=== PATIENT | male | born 1950 | race Caucasian/White ===

== ENCOUNTER → 2020-05-28 | Outpatient (CLI) | payer MEDICARE ==
[~2020-05-28] MED LIST: ASPI-630 PO; CLOP75TA57 PO; CRESTOR5 MG PO; DEXT30CA6 PO; FENO160T PO; FINA5TAB4 PO; FLUO20CA20 PO; LOSA-73 PO; METF10007 PO; METO-313 PO; MIRA50TA PO; TAMS0.4C97 PO
== END | disposition home or self-care (01) ==
LOC: LAB 13:34
PROVIDERS: ATTEND Internal Medicine Gastroenterology
DX: Z20.828 Contact with and (suspected) exposure to other viral communicable diseases (principal)
CPT/HCPCS: U0003-CS

== ENCOUNTER → 2020-05-31 | Day surgery (SDC) | payer MEDICARE, BC ==
[~2020-05-31] MED LIST changes: +IV RINGERS,LACTATED 1000ML 1,000 ML IV SCH; +LIDOCAINE 1% PF 2 ML VIAL. ID PRN; +LIDOCAINE 2% PF 5 ML VIAL. ONE; +MIDAZOLAM HCL/PF 2 MG/2 ML VIAL. IV PRN; +PROPOFOL 10 MG/ML (20ML) VIAL. IV ONE; +fentaNYL PF VIAL 100 MCG/2 ML VIAL IV PRN
[2020-05-31 08:20] VITALS: BP 135/74
== END | disposition home or self-care (01) ==
LOC: ENDOS 06:46
PROVIDERS: ATTEND Internal Medicine Gastroenterology
DX: R13.10 Dysphagia, unspecified (principal); K22.2 Esophageal obstruction; F41.9 Anxiety disorder, unspecified; F32.9 Major depressive disorder, single episode, unspecified; E78.00 Pure hypercholesterolemia, unspecified; I10 Essential (primary) hypertension; G47.30 Sleep apnea, unspecified; Z95.0 Presence of cardiac pacemaker; Z79.82 Long term (current) use of aspirin; Z79.899 Other long term (current) drug therapy; Z83.3 Family history of diabetes mellitus; Z82.49 Family history of ischemic heart disease and other diseases of the circulatory system; Z72.89 Other problems related to lifestyle
CPT/HCPCS: 43450; 82962; J2704

== ENCOUNTER 2021-07-22 00:03 | Inpatient (IN) | payer MEDICARE ==
[~2021-07-22] VITALS: Ht 172.7 cm; Wt 91.9 kg
[~2021-07-22 00:03] MED LIST changes: -FLUO20CA20 PO; +FLUO20CA22 PO; -IV RINGERS,LACTATED 1000ML 1,000 ML IV SCH; -LIDOCAINE 1% PF 2 ML VIAL. ID PRN; -LIDOCAINE 2% PF 5 ML VIAL. ONE; -MIDAZOLAM HCL/PF 2 MG/2 ML VIAL. IV PRN; +MIRA25TA PO; -MIRA50TA PO; -PROPOFOL 10 MG/ML (20ML) VIAL. IV ONE; -fentaNYL PF VIAL 100 MCG/2 ML VIAL IV PRN
[2021-07-22 00:28] LABS: BASO % 1 % (0-3); EOS # 0.1 x10^3/uL (0.0-0.7); EOS % 1 % (0-3); HEMATOCRIT 38.9 % (39.0-53.0); HEMOGLOBIN 13.5 g/dL (13.0-17.5); LYMPH # 1.5 x10^3/uL (1.0-4.8); LYMPH % 17 % (24-48); MEAN CORPUSCULAR HEMOGLOBIN 30 pg (25-35); MEAN CORPUSCULAR HGB CONC 35 g/dL (31-37); MEAN CORPUSCULAR VOLUME 86 fL (79-100); MONO # 0.5 x10^3/uL (0.0-1.1); MONO % 6 % (0-9); NEUT # 6.4 x10^3/uL (1.8-7.7); NEUT % 75 % (31-73); PLATELET COUNT 238 x10^3/uL (140-400); RED BLOOD COUNT 4.51 x10^6/uL (4.30-5.70); RED CELL DISTRIBUTION WIDTH 13.8 % (11.5-14.5); WHITE BLOOD COUNT 8.5 x10^3/uL (4.0-11.0)
--- NOTE | 2021-07-22 00:31 | PHYS DOC ---
General Adult EDM: Chief Complaint: CHEST PAIN-CARDIAC NATURE HPI: HPI: 71-year-old male past medical history of CAD on Plavix, insulin-dependent diabetes, hypertension, hyperlipidemia and obesity, presents the ED from [facility] with complaints of left-sided chest pain described as " someone stabbing with a knife," started around 1030/11 PM while patient was swimming at a local gym. No relief with 2 0.4 mg tablets of nitroglycerin. Reports associated nausea, vomiting, shortness of breath and diaphoresis stating "it feels like I'm having a heart attack." Per EMS patient's initial blood pressure was 87/50. Glucose was in the 180s. Patient was given 4 baby aspirin, 100 mcg of fentanyl and 4 mg of Zofran. Repeat BP was 170s/80s. Fluid bolus started. Pt poor historian-believes last AMI was 1 year ago at [facility]. Received the moderna vaccine. Review of Systems: Review of Systems: Constitutional: Denies fever or chills. [] Eyes: Denies change in visual acuity. [] HENT: Denies nasal congestion or sore throat. [] Respiratory: Denies cough or increased work of breathing Cardiovascular: Denies syncope or palpitations GI: Denies abdominal pain, bloody stools or diarrhea. [] : Denies dysuria or hematuria Musculoskeletal: Denies back pain or joint pain. [] Integument: Denies rash or blistering lesions Neurologic: Denies headache, focal weakness or sensory changes. [] Endocrine: Denies polyuria or polydipsia. [] Lymphatic: Denies swollen glands. [] Psychiatric: Denies depression or anxiety. [] Heart Score: C/O Chest Pain: Yes HEART Score for Chest Pain: HEART Score for Chest Pain Response (Comments) Value History Moderately Suspicious 1 ECG Nonspecific Repolarizatio 1 Age > 65 2 Risk Factors >3 Risk Factors or Hx CAD 2 Troponin < Normal Limit 0 Total 6 Risk Factors: Risk Factors: DM, Current or recent (<one month) smoker, HTN, HLP, family history of CAD, obesity. Risk Scores: Score 0 - 3: 2.5% MACE over next 6 weeks - Discharge Home Score 4 - 6: 20.3% MACE over next 6 weeks - Admit for Clinical Observation Score 7 - 10: 72.7% MACE over next 6 weeks - Early Invasive Strategies Allergies: Allergies: Allergies Coded Allergies Type Severity Reaction Last Updated Verified No Known Drug Allergies 05/31/20 No Physical Exam: PE: Constitutional: Grimacing, but not toxic appearing HENT: Normocephalic, atraumatic, no JVD Eyes: EOMI, conjunctiva normal, no discharge. Neck: Normal range of motion, supple, Cardiovascular: S1/2 present, regular rhythm Lungs & Thorax: Speaking in full sentences, bilateral equal chest rise, no tachypnea or increased work of breathing, no murmurs Abdomen: soft, no tenderness, Skin: Warm, dry, no erythema, no rash. [] Extremities: No tenderness, no cyanosis, Neurologic: Alert and oriented X 3, normal motor function, normal sensory function, no focal deficits noted. [] Psychologic: Affect normal, judgement normal, mood normal. [] EKG: EKG: two ems rhythm strips reviewed 2313 & 231 that show right bundle branch block with T wave inversion and ST depression in V1, V2 & V3, TWI V4, no ST elevations 0006 sinus rhythm with PACs, QRS 134, QTc 479, no axis deviation, left bundle branch present with deep inverted T waves and ST segment depressions in V1, V2 and V3, TWI V4, no ST elevations 0009 posterior EKG performed, sinus rhythm 71 bpm, no axis deviation, QRS 134, QTc 470, right bundle branch block present with deep inverted T waves in V1, V2 and V3, no ST elevations in V7, V8 in V9, no ST elevations 0012 right sided ekg performed, sinus rhythm 69 bpm, no axis deviation, QRS 144, QTc 480, right bundle branch present with deep inverted T waves in V1, V2, V3, T wave inversion V4, V5 and V6, no JOYCE in V4 0025 d/w cardiology, Dr. Martini- does not meet stemi criteria, consider cta to rule out pe for possible new rbbb Radiology/Procedures: Radiology/Procedures: []IMAGING REPORT Signed PATIENT: TRACIE CHOW ACCOUNT: [id number] : 1950 LOCATION: [address] [place] [address] AGE: 71 SEX: M EXAM STATUS: ADM IN ORD. PHYSICIAN: HARMONY FIELDS DO REASON: cp PROCEDURE: PORTABLE CHEST 1V EXAM: CHEST 1 VIEW History: Chest pain COMPARISON: None available. TECHNIQUE: Single portable radiograph of the chest FINDINGS: Mild cardiomegaly. Changes of CABG. The costophrenic sulci are clear and well demarcated. IMPRESSION: Mild cardiomegaly. Electronically signed by: Vincent Carvajal MD (07/22/2021 4:25 AM) [id number] DICTATED and SIGNED BY: VINCENT CARVAJAL MD DATE: 07/22/21 [id number] 0 IMAGING REPORT Signed PATIENT: TRACIE CHOW ACCOUNT: [id number] : 1950 LOCATION: [address] [place] [address] AGE: 71 SEX: M EXAM STATUS: ADM IN ORD. PHYSICIAN: HARMONY FIELDS DO REASON: cp, soa, r/o pe;OMNI 350, 75ML PROCEDURE: CT ANGIOGRAPHY CHEST Examination: CT angiography chest with IV contrast HISTORY: History of chest pain, shortness of breath COMPARISON: None available TECHNIQUE: Axial CT angiographic images of chest were performed with IV contrast. Coronal and sagittal 3-D MIP reformats are performed Exposure: One or more of the following individualized dose reduction techniques were utilized for this examination: 1. Automated exposure control 2. Adjustment of the mA and/or kV according to patient size 3. Use of iterative reconstruction technique FINDINGS: The central airways are patent. Mild cardiomegaly. Coronary artery calcifications identified. There is no evidence of filling defect identified in the main pulmonary arterial trunk and right and left lobe pulmonary arteries and the visualized lobar, segmental branches of pulmonary arteries. Mild bibasilar lung atelectasis. 5.5 mm nodule right upper lobe of the lung. The liver, spleen, adrenals grossly appears unremarkable. Moderate degenerative changes thoracic spine. IMPRESSION: 1. No evidence of pulmonary embolism. 2. Coronary artery calcifications. 3. 5.5 mm nodule right upper lobe of the lung. Per Fleischner Society guidelines for incidentally found solid nodules measuring less than 6 mm, no follow-up is necessary if patient is considered at low risk for lung cancer. If patient is considered to be at high risk, such as with history of smoking, then CT follow-up in about 12 months can be considered. Electronically signed by: Vincent Carvajal MD (07/22/2021 1:41 AM) [id number] DICTATED and SIGNED BY: VINCENT CARVAJAL MD DATE: 07/22/21 [id number] 0 Course & Med Decision Making: Course & Med Decision Making Pertinent Labs and Imaging studies reviewed. (See chart for details) Concern for moderate risk chest pain and arrest patient with no ST elevations on EKG, reviewed with cardiology. D-dimer is elevated. CTA of the chest shows no evidence of pulmonary embolus. Chest x-ray concerning for mild cardiomegaly. First troponin negative. Will admit for further medical management with cardiology full consultation pending. Patient stable at time of admission and agrees with this plan. I have spoken with the patient and/or caregivers. I have explained the patient's condition, diagnosis and treatment plan based on the information available to me at this time. I have answered the patient's and/or caregivers questions and answered any concerns. The patient and/or caregivers have as good an understanding of the patient's diagnosis, condition and treatment plan as can be expected at this point. The patient has been stabilized within the capability of the emergency department. The patient will be transported for further care and management or will be moved to an observation or inpatient service. I have communicated with the staff or medical practitioner taking over this patient's care. Yulissa Disclaimer: Yulissa Disclaimer: This electronic medical record was generated, in whole or in part, using a voice recognition dictation system. Departure Departure Impression: Primary Impression: Chest pain Disposition: ADMITTED INPATIENT Admitting Physician: BIANCA (Dr. Puga) Condition: GUARDED Referrals: BREEZY TAYLOR MD (PCP) HARMONY FIELDS DO Jul 22, 2021 00:31
[2021-07-22 00:39] LABS: CALCIUM 9.5 mg/dL (8.5-10.1); CREATININE 1.3 mg/dL (0.7-1.3); GFR 54.3; POTASSIUM 3.8 mmol/L (3.5-5.1)
[2021-07-22 00:44] LABS: D-DIMER 0.71 ug/mlFEU (0.00-0.50)
[2021-07-22 00:45] LABS: ALBUMIN/GLOBULIN RATIO 1.3 (1.0-1.7); MAGNESIUM 1.4 mg/dL (1.8-2.4); TOTAL BILIRUBIN 0.8 mg/dL (0.2-1.0); TOTAL PROTEIN 7.1 g/dL (6.4-8.2)
[2021-07-22] MEDS ORDERED: CONTRAST GIVEN. MC PRN ×2 (01:00→11:15)
[2021-07-22] MEDS ORDERED: IOHEXOL 350 MG/ML 100 ML VIAL. IV ONE (01:30)
--- NOTE | 2021-07-22 01:43 | RAD ---
Examination: CT angiography chest with IV contrast HISTORY: History of chest pain, shortness of breath COMPARISON: None available TECHNIQUE: Axial CT angiographic images of chest were performed with IV contrast. Coronal and sagitta l 3-D MIP reformats are performed Exposure: One or more of the following individualized dose reduction techniques were utilized for thi s examination: 1. Automated exposure control 2. Adjustment of the mA and/or kV according to patient size 3. Use of iterative reconstruction technique FINDINGS: The central airways are patent. Mild cardiomegaly. Coronary artery calcifications identified. There i s no evidence of filling defect identified in the main pulmonary arterial trunk and right and left lo be pulmonary arteries and the visualized lobar, segmental branches of pulmonary arteries. Mild bibasi lar lung atelectasis. 5.5 mm nodule right upper lobe of the lung. The liver, spleen, adrenals grossly appears unremarkable. Moderate degenerative changes thoracic spine. IMPRESSION: 1. No evidence of pulmonary embolism. 2. Coronary artery calcifications. 3. 5.5 mm nodule right upper lobe of the lung. Per Fleischner Society guidelines for incidentally fo und solid nodules measuring less than 6 mm, no follow-up is necessary if patient is considered at low risk for lung cancer. If patient is considered to be at high risk, such as with history of smoking, then CT follow-up in about 12 months can be considered. Electronically signed by: Vincent Carvajal MD (07/22/2021 1:41 AM) [id number]
[2021-07-22 02:00] VITALS: BP 140/70
--- NOTE | 2021-07-22 02:00 | NUR ---
Admit from ER via [facility] to [address] [place] [address] room 656. A/O x 4 on arrival. Talkative. Pleasant. Stood and ambulated from [facility] to bed independently. Steady gait. Was swimming at the gym this evening prior to having chest pain. Orientated to unit and call light. Instructed to call for standby assist when out of bed. Reviewed POC to include Tele monitor, VS assessment and Lab Draws. Verbalized understanding. Resting in bed. Call light at hand.
[2021-07-22] MEDS ORDERED: NPH,100V5 SQ (02:52)
[2021-07-22] MEDS ORDERED: INSU100V6 SQ (02:54)
--- NOTE | 2021-07-22 04:28 | EKG ---
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
--- NOTE | 2021-07-22 04:28 | RAD ---
EXAM: CHEST 1 VIEW History: Chest pain COMPARISON: None available. TECHNIQUE: Single portable radiograph of the chest FINDINGS: Mild cardiomegaly. Changes of CABG. The costophrenic sulci are clear and well demarcated. IMPRESSION: Mild cardiomegaly. Electronically signed by: Vincent Carvajal MD (07/22/2021 4:25 AM) [id number]
--- NOTE | 2021-07-22 04:29 | EKG ---
[facility] [address] [place] [address] Test Date: 2021-07-22 Test Time: 00:06:53 Pat Name: TRACIE CHOW Department: Room: [facility] Gender: M General Doc: : 1950 Requested By: HARMONY FIELDS Order Number: [id number] Reading MD: Giovanny Martini Measurements Intervals [place] Rate: 70 P: 90 RI: 140 QRS: 20 QRSD: 134 T: -7 QT: 434 QTc: 472 Interpretive Statements SINUS RHYTHM ATRIAL PREMATURE COMPLEX(ES) LEFT ATRIAL ABNORMALITY RIGHT BUNDLE BRANCH BLOCK RVH WITH REPOLARIZATION ABNORMALITY ABNORMAL ECG RI6.02 No previous ECG available for comparison Electronically Signed On 07-23-2021 16:03:50 CDT by Giovanny Martini
[2021-07-22] MEDS ORDERED: IOHEXOL 350 MG/ML 100 ML VIAL. ONE (05:57)
[2021-07-22] MEDS ORDERED: ANTI-COAG MONITOR BY PHARMACY. MC PRN (06:15)
[2021-07-22] MEDS ORDERED: HEPARIN 25,000UTS/250ML PREMIX 250 ML IV PRN (06:15)
[2021-07-22] MEDS ORDERED: HEPARIN for IV BOLUS 10,000 UNIT/10 ML VIAL. IV PRN (06:15)
[2021-07-22 07:00] VITALS: BP 113/53
--- NOTE | 2021-07-22 08:49 | PDOC2 ---
JOVANY STEPHEN CURB SETTER 07/22/21 0848: CARDIAC CONSULT DATE OF CONSULT Date of Consult DATE: 07/22/21 TIME: 08:39 REASON FOR CONSULT Reason for Consult: chest pain REFERRING PHYSICIAN Referring Physician: [facility] SOURCE Source: Chart review, Patient HISTORY OF PRESENT ILLNESS HISTORY OF PRESENT ILLNESS This is a pleasant 71 yo male admitted for complains of chest pain. Reports of chest pain intense sharp to left chest last night with associated nausea, SOA and diaphoresis, He has hx of CAD with multiple stents in the past. 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 Denies any fever or chills and has been vaccinated for covid-19. 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 Psych: Anxiety Musculoskeletal: Osteoarthritis Renal/: Benign prostatic enlarg., Other (ED) Endocrine: Diabetes (2) PAST SURGICAL HISTORY Past Surgical History: CABG, Other (PCI) FAMILY HISTORY Family History: Hypertension SOCIAL HISTORY Smoke: Quit ALCOHOL: none Drugs: None Lives: with Family CURRENT MEDICATIONS CURRENT MEDICATIONS Current Medications Medications (Trade) Dose Ordered Sig/Becca Route PRN Reason Start Time Stop Time Status Last Admin Dose Admin Iohexol (Omnipaque 350 Mg/ml) 75 ml 1X ONCE IV 07/22/21 01:30 07/22/21 01:31 DC 07/22/21 01:14 Heparin Sodium/ Dextrose 250 ml @ 10 mls/hr CONT PRN IV PER PROTOCOL 07/22/21 06:15 07/22/21 06:34 Heparin Sodium (Porcine) (Heparin Sodium) 2,300 unit PRN Q6HRS PRN IV FOR UFH LEVEL LESS THAN 0.2 07/22/21 06:15 07/22/21 06:35 Info (Anti-Coagulation Monitoring By Pharmacy) 1 each PRN DAILY PRN MC PER PROTOCOL 07/22/21 06:15 07/22/21 06:16 ALLERGIES ALLERGIES: Coded Allergies: No Known Drug Allergies (Unverified , 05/31/20) ROS Review of System 14 point ROS evaluated with pertinent positives noted per HPI PHYSICAL EXAM General: Alert, Oriented X3, Cooperative, No acute distress HEENT: Atraumatic, Mucous membr. moist/pink Lungs: Clear to auscultation, Normal air movement Heart: Regular rate (SR), Normal S1, Normal S2, No murmurs Abdomen: Soft, No tenderness Extremities: No cyanosis, No edema Skin: No breakdown, No significant lesion Neuro: Normal speech, Sensation intact Psych/Mental Status: Mental status NL, Mood NL MUSCULOSKELETAL: Osteoarthritic changes both hands VITALS/I&O VITALS/I&O: Vital Signs Date Time Temp Pulse Resp B/P (MAP) Pulse Ox O2 Delivery O2 Flow Rate FiO2 07/22/21 07:00 96.8 71 16 113/53 (73) 94 Room Air 96.8 I & O 07/21/21 07/21/21 07/22/21 15:00 23:00 07:00 Intake Total 0 ml Balance 0 ml LABS Lab: Laboratory Tests Test 07/22/21 00:16 07/22/21 01:24 07/22/21 03:30 07/22/21 06:20 White Blood Count 8.5 x10^3/uL (4.0-11.0) Red Blood Count 4.51 x10^6/uL (4.30-5.70) Hemoglobin 13.5 g/dL (13.0-17.5) Hematocrit 38.9 % (39.0-53.0) L Mean Corpuscular Volume 86 fL (79-100) Mean Corpuscular Hemoglobin 30 pg (25-35) Mean Corpuscular Hemoglobin Concent 35 g/dL (31-37) Red Cell Distribution Width 13.8 % (11.5-14.5) Platelet Count 238 x10^3/uL (140-400) Neutrophils (%) (Auto) 75 % (31-73) H Lymphocytes (%) (Auto) 17 % (24-48) L Monocytes (%) (Auto) 6 % (0-9) Eosinophils (%) (Auto) 1 % (0-3) Basophils (%) (Auto) 1 % (0-3) Neutrophils # (Auto) 6.4 x10^3/uL (1.8-7.7) Lymphocytes # (Auto) 1.5 x10^3/uL (1.0-4.8) Monocytes # (Auto) 0.5 x10^3/uL (0.0-1.1) Eosinophils # (Auto) 0.1 x10^3/uL (0.0-0.7) Basophils # (Auto) 0.0 x10^3/uL (0.0-0.2) Prothrombin Time 13.0 SEC (11.7-14.0) Prothrombin Time INR 1.0 (0.8-1.1) Activated Partial Thromboplast Time 25 SEC (24-38) D-Dimer ([place]) 0.71 ug/mlFEU (0.00-0.50) H Sodium Level 137 mmol/L (136-145) Potassium Level 3.8 mmol/L (3.5-5.1) Chloride Level 99 mmol/L (98-107) Carbon Dioxide Level 25 mmol/L (21-32) Anion Gap 13 (6-14) Blood Urea Nitrogen 20 mg/dL (8-26) Creatinine 1.3 mg/dL (0.7-1.3) Estimated GFR (Cockcroft-Gault) 54.3 BUN/Creatinine Ratio 15 (6-20) Glucose Level 191 mg/dL (70-99) H Calcium Level 9.5 mg/dL (8.5-10.1) Magnesium Level 1.4 mg/dL (1.8-2.4) L Total Bilirubin 0.8 mg/dL (0.2-1.0) Aspartate Amino Transferase (AST) 22 U/L (15-37) Alanine Aminotransferase (ALT) 38 U/L (16-63) Alkaline Phosphatase 82 U/L (46-116) Troponin I Quantitative 0.035 ng/mL (0.000-0.055) 1.667 ng/mL (0.000-0.055) 4.699 ng/mL (0.000-0.055) YO-Dgf-Y-Type Natriuretic Peptide 514 pg/mL (0-124) H Total Protein 7.1 g/dL (6.4-8.2) Albumin 4.0 g/dL (3.4-5.0) Albumin/Globulin Ratio 1.3 (1.0-1.7) SARS-CoV-2 Antigen (Rapid) Negative (NEGATIVE) Test 07/22/21 07:52 Glucose (Fingerstick) 236 mg/dL (70-99) H Laboratory Tests 07/22/21 00:16 Laboratory Tests 07/22/21 00:16 ASSESSMENT/PLAN ASSESSMENT/PLAN 1. NSTEMI/ACS 2. HTN 3. HLP 4. CAD: past stents unknown details. CABG 5. DM2 6. Hx of AAA: outpt monitoring Recommendations 1. LHC, risks and benefits discussed and agreeable to proceed 2. Secondary prevention measures 3. Continue heparin 4. FLP, TTE BRINDA MAYNARD MD 07/22/21 1011: CARDIAC CONSULT ASSESSMENT/PLAN ASSESSMENT/PLAN Patient seen and examined. Agree with INSTRUMENT/CONTROL TECHNICIAN's assessment and plan. 71-year-old male with known history of coronary artery disease s/p CABG and PCI/stents thereafter, usually followed by [facility] presented with chest pain and ruled in for acute non-STEMI. He is currently chest pain-free. Continue heparin infusion per protocol and proceed with cardiac catheterization and possible angioplasty. Risks and benefits were explained and he is agreeable. Thank you for your consultation JOVANY STEPHEN APRN Jul 22, 2021 08:48 BRINDA MAYNARD MD Jul 22, 2021 10:11
[2021-07-22] MEDS ORDERED: LIDOCAINE 1% Multi-Dose 20 ML VIAL. ONE (08:59)
[2021-07-22] MEDS ORDERED: IODIXANOL 320 MG/ML 100 ML VIAL. ONE ×2 (08:59→11:24)
[2021-07-22] MEDS ORDERED: FLU VACC QUAD 21-22 (6MOS+) PF 0.5 ML SYRINGE. VAX IM ONE (09:00)
[2021-07-22 09:09] LABS: CHOLESTEROL/HDL RATIO 2.9
[2021-07-22] MEDS ORDERED: fentaNYL PF VIAL 100 MCG/2 ML VIAL ONE (10:15)
[2021-07-22] MEDS ORDERED: MIDAZOLAM HCL/PF 2 MG/2 ML VIAL. ONE (10:15)
[2021-07-22] MEDS ORDERED: IODIXANOL 320 MG/ML 100 ML VIAL. IART ONE (11:00)
[2021-07-22] MEDS ORDERED: fentaNYL PF VIAL 100 MCG/2 ML VIAL IV ONE (11:00)
[2021-07-22] MEDS ORDERED: MIDAZOLAM HCL/PF 2 MG/2 ML VIAL. IV ONE (11:00)
[2021-07-22] MEDS ORDERED: LIDOCAINE 1% Multi-Dose 20 ML VIAL. INJ ONE (11:00)
[2021-07-22 11:44] VITALS: BP 148/75
[2021-07-22] MEDS ORDERED: 0.9 % SODIUM CHLORIDE 10 ML DISP.SYRIN. IV PRN (11:45)
--- NOTE | 2021-07-22 11:46 | PDOC ---
MODERATE SEDATION ASSESSMENT RISKS/ALTERNATIVES Risks/Alternatives Risks and alternatives of this type of sedation and procedure discussed with: RISK/ALTERNATIVES: Patient H & P ON CHART H & P H & P on chart and reviewed for co-morbid conditions and appropriate labs. H&P ON CHART: Yes STATUS PREG STATUS ASSESSED: N/A MEDS/ALLERGIES REVIEWED Meds/Allergies Reviewed Medications and Allergies including time and route of recently administered narcotics and sedatives. MEDS/ALLERGIES REVIEWED: Yes ASA RATING ASA RATING: III AIRWAY ASSESSMENT Airway Assessment Airway patency, oral function limitations, presence of caps, crowns, dentures, partials, and ability to extend neck assessed. AIRWAY ASSESSMENT: Yes MALLAMPATI SCORE MALLAMPATI SCORE: II PRE-SEDATION ASSESSMENT PRE-SEDATION ASSESSMENT: Yes BRINDA MAYNARD MD Jul 22, 2021 11:46
--- NOTE | 2021-07-22 12:08 | HP ---
DATE OF SERVICE: 07/22/2021 ADMIT DATE: 07/22/2021 CHIEF COMPLAINT: Chest pain. HISTORY OF PRESENT ILLNESS: The patient is a pleasant 71-year-old male who has had previous coronary artery disease. In fact, he has had stents and bypass surgery. Once again, he presents with chest pain, rates it 04/05, describes as a pressure sensation. I discussed the case with ER physician. We have admitted the patient. We are consulting Cardiology. He is going for cardiac catheterization today. PAST MEDICAL HISTORY: Coronary artery bypass surgery, CAD, coronary stents, hypertension, hyperlipidemia, PIOTR, neuropathy, osteoarthritis, anxiety, BPH and diabetes. ALLERGIES: None. FAMILY HISTORY: CAD. 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 He does not drink, smoke or take drugs. MEDICATIONS: Reviewed, please refer to the MRAD. REVIEW OF SYSTEMS: GENERAL: No history of weight change, weakness or fevers. SKIN: No bruising, hair changes or rashes. EYES: No blurred, double or loss of vision. NOSE AND THROAT: No history of nosebleeds, hoarseness or sore throat. HEART: No history of palpitations, chest pain or shortness of breath on exertion. LUNGS: Denies cough, hemoptysis, wheezing or shortness of breath. GASTROINTESTINAL: Denies changes in appetite, nausea, vomiting, diarrhea or constipation. GENITOURINARY: No history of frequency, urgency, hesitancy or nocturia. NEUROLOGIC: Denies history of numbness, tingling, tremor or weakness. PSYCHIATRIC: No history of panic, anxiety or depression. ENDOCRINE: No history of heat or cold intolerance, polyuria or polydipsia. EXTREMITIES: Denies muscle weakness, joint pain, pain on walking or stiffness. PHYSICAL EXAMINATION: VITALS: Within normal limits and are stable. GENERAL: No apparent distress. Alert and oriented. HEENT: Normal cephalic atraumatic, external auditory canals are patent EYES: Extraocular muscles are intact, pupils are equally round and reactive to light and accommodation MUSCULOSKELETAL: Well developed, well nourished, good range of motion ENDOCRINE: No thyromegaly was palpated LYMPHATICS: No cervical chain or axillary nodes were noted HEMATOPOIETIC: No bruising NECK: Supple, no JVD, no thyromegaly was noted. LUNGS: Clear to auscultation in all lung loza without rhonchi or wheezing. HEART: RRR, S1, S2 present. Peripheral pulses intact, no obvious murmurs were noted. ABDOMEN: Soft, nontender. Positive bowel sounds no organomegaly, normal bowel sounds. EXTREMITIES: Without any cyanosis, clubbing, or edema. Pedal pulses intact, Homans sign is negative. NEUROLOGIC: Normal speech, normal tone. A and O x3, moves all extremities, no obvious focal deficits. PSYCHIATRIC: Normal affect, normal mood. Stable. SKIN: No ulcerations or rashes, good skin turgor, no jaundice. VASCULAR: Good capillary refill, neurovascular bundle appears to be intact. LABORATORY DATA: Troponin is 1.6. This morning, it is up to 4.69. Creatinine normal at 1.3. Hematology is normal. INR is 1. COVID testing negative. ASSESSMENT AND PLAN: Acute myocardial infarction. The patient has been admitted. He is going for cardiac catheterization in just a few minutes. We will await our cath report and results. Home medications. Deep venous thrombosis prophylaxis. Full code. We have a heparin drip. Prognosis guarded, but improving. RUBI/JORDAN/JUDSON DR: RUBI/jennifer TID: [id number]
[2021-07-22] MEDS ORDERED: NITROGLYCERIN SUBLINGUAL 0.4 MG BOTTLE OF 25. SL ONE (12:48)
[2021-07-22] MEDS ORDERED: NITROGLYCERIN SUBLINGUAL 0.4 MG BOTTLE OF 25. SL PRN (13:00)
[2021-07-22] MEDS ORDERED: HYDROcodone/APAP 5/325MG 1 TAB TABLET PO PRN (13:00)
[2021-07-22] MEDS ORDERED: ISOS30TA68 PO (13:08)
[2021-07-22] MEDS ORDERED: CLOP75TA PO (14:04)
[2021-07-22] MEDS ORDERED: METOPROLOL SUCC 24HR ER 100 MG TAB.ER.24H. PO ONE (14:15)
--- NOTE | 2021-07-22 14:43 | NUR ---
SS following for discharge planning. SS reviewed pt chart and discussed with pt RN. Pt is from home with spouse and is currently requiring oxygen at two liters nasal canula. COVID19 negative. Pt had heart cath today. PT/OT ordered. SS will continue to follow for discharge planning.
--- NOTE | 2021-07-22 14:51 | CARD ---
MR#: [id number] Date of Study: 07/22/2021 Ordering Physician: BRINDA MARTINI, Referring Physician: BRINDA MARTINI, Tech: RT Rachel(R) APPROVED REPORT Technologist: RT Rachel(R) Nurse: Yuki Devlin RN Procedure(s) performed: Left heart catheterization, selective coronary angiography and selective keyla ography of the bypass grafts FLOURO TIME: 7.5 MINUTES DOSE: 111.25 Gycm2 CONTRAST: 184 CC'S VISIPAQUE MODERATE SEDATION: 66 MINUTES INDICATION The indication(s) include : non-STEMI . [facility] Clinical Frailty Scale [facility] Clinical Frailty Scale: Moderately Frail Heart Failure Heart Failure: No CASE TECHNIQUE IV conscious sedation was used throughout procedure with appropriate monitoring and was performed in the presence of a registered nurse who was an independent trained observer other than the physician p erforming the procedure. During this case, Fluoroscopy and low osmolar contrast were used for imaging . Specimen(s) Removed: No Estimated Blood loss: 15 cc's. PROCEDURE NARRATIVE After explaining the risk, benefits and alternative options, informed consent was obtained from patie nt. Patient was brought to the cardiac School Aide and his right groin was prepped and draped in the us ual fashion. 20 cc of 2% lidocaine was infiltrated into the skin and subcutaneous tissues for local anesthesia. Arterial access was obtained in the right common femoral artery and a 6 [place]otho sheath wa s inserted. 6 [place] JL4 and 6 [place] JR4 catheters were used to perform selective angiography of th e left and right coronary arteries. The 6 [place] JR4 catheter was used to perform selective angiogra phy of the saphenous vein graft to the right coronary artery, sequential saphenous vein graft to the first and second obtuse marginal branches and also the left internal mammary artery graft to the left anterior descending artery. 6 [place] pigtail catheter was positioned in the ascending aorta and meagan t aortogram was performed to rule out presence of any other grafts. LVEDP and transaortic gradients were measured. Patient tolerated the procedure well. Hemostasis in the right groin was achieved usi ng Angio-Seal. There were no immediate complications. FINDINGS 1. Hemodynamics: Elevated left ventricular end-diastolic pressure of 27 mmHg consistent with acute d iastolic heart failure. No pullback gradient across the aortic valve 2. Coronary and bypass graft angiography: a. The left main coronary artery arose from the left sinus of Valsalva, gave rise to the left anteri or descending and left circumflex arteries and did not show any significant stenosis. b. The left anterior descending artery showed a widely patent stent in the proximal to mid segment. There was 100% chronic total occlusion in the distal segment. c. The left circumflex artery showed a long 90% stenosis in the midsegment followed by 100% chronic total occlusion. d. The right coronary artery arose from the right sinus of Valsalva and showed 100% chronic total oc clusion in the mid segment. The right ventricular marginal branch reconstitutes via bridging collate rals. The posterior descending and posterolateral branches reconstitute via kaqb-ad-umopw collateral s. e. The saphenous vein graft to the right coronary artery showed chronic total occlusion in the proxi mal segment. f. The sequential saphenous vein graft to the first and second obtuse marginal branches showed paten t stents in the proximal and distal segments of the graft and also in the segment between the first a nd second obtuse marginal branches. The third obtuse marginal branch fills via retrograde flow. g. The left internal mammary artery graft to the left anterior descending artery was widely patent. Conclusion 1. Severe [place] vessel coronary artery disease s/p coronary artery bypass surgery as described abov e with patent RAMOS to LAD, patent stents in the sequential saphenous vein graft to the first and seco nd obtuse marginal branches. The saphenous vein graft to the right coronary artery showed chronic to cosmo occlusion. The previously placed stent in the proximal to mid segment of the left anterior desce nding artery is patent. No lesions needing intervention were noted. 2. Acute diastolic heart failure as evidenced by elevated LVEDP. Recommendations Medical Therapy Signed by : Brinda Martini, Electronically Approved : 07/22/2021 14:50:47
--- NOTE | 2021-07-22 14:58 | CARD ---
MR#: [id number] Date of Study: 07/22/2021 Ordering Physician: JOVANY STEPHEN, Referring Physician: JOVANY STEPHEN Tech: Cecilia Garcia [facility] APPROVED REPORT EXAM: Two-dimensional and M-mode echocardiogram with Doppler and color Doppler. Other Information Quality : AverageHR: 72bpm Rhythm : NSR INDICATION Cardiac Disease: RISK FACTORS Hypertension Obesity Hyperlipidemia Diabetes 2D DIMENSIONS RVDd3.3 (2.9-3.5cm)Left Atrium(2D)4.5 (1.6-4.0cm) IVSd1.0 (0.7-1.1cm)Aortic Root(2D)4.0 (2.0-3.7cm) LVDd5.7 (3.9-5.9cm)LVOT Diameter2.2 (1.8-2.4cm) PWd1.1 (0.7-1.1cm)LVDs3.1 (2.5-4.0cm) FS (%) 45.5 %SV122.9 ml LVEF(%)76.2 (>50%) Aortic Valve AoV Peak Carlton.116.2cm/sAoV VTI22.6cm AO Peak GR.5.4mmHgLVOT VTI 21.62cm AO Mean GR.3mmHg Mitral Valve MV E Lbdgpqlv15.6cm/sMV DECEL [id number] MV A Rhfloxvy518.9cm/sE/A Ratio0.9 TDI Lateral E' P. V7.99cm/sMedial E' P. V7.75cm/s E/Lateral E'12.0E/Medial E'12.3 Tricuspid Valve TR P. Znpifewf578cp/sTR Peak Gr.22mmHg LEFT VENTRICLE The Left Ventricle is borderline dilated. There is borderline to mild concentric left ventricular hyp ertrophy. The left ventricular systolic function is normal and the ejection fraction is within normal range. Estimated ejection fraction 50-55%. The basal to mid inferior wall is akinetic. Remainder of the LV is grossly normal. Transmitral Doppler flow pattern is Grade I-abnormal relaxation pattern. RIGHT VENTRICLE The right ventricle is normal size. There is normal right ventricular wall thickness. The right ventr icular systolic function is normal. ATRIA The left atrium size is normal. The right atrium size is normal. The interatrial septum is intact wit h no evidence for an atrial septal defect or patent foramen ovale as noted on 2-D or Doppler imaging. AORTIC VALVE The aortic valve is normal in structure and function. Doppler and Color Flow revealed trace aortic re gurgitation. There is no significant aortic valvular stenosis. MITRAL VALVE The mitral valve is normal in structure and function. There is no evidence of mitral valve prolapse. There is no mitral valve stenosis. Doppler and Color-flow revealed mild mitral regurgitation. TRICUSPID VALVE The tricuspid valve is normal in structure and function. Doppler and Color Flow revealed trace tricus pid regurgitation. Estimated PAP 32 mmHg. There is no tricuspid valve stenosis. PULMONIC VALVE Doppler and Color Flow revealed no pulmonic valvular regurgitation. There is no pulmonic valvular iona nosis. GREAT VESSELS The aortic root is normal in size. The ascending aorta is normal in size. The IVC is normal in size a nd collapses >50% with inspiration. PERICARDIAL EFFUSION There is no evidence of significant pericardial effusion. Critical Notification Critical Value: No <Conclusion> The left ventricular systolic function is normal and the ejection fraction is within normal range. E stimated ejection fraction 50-55%. The basal to mid inferior wall is akinetic. Remainder of the LV is grossly normal. Doppler and Color-flow revealed mild mitral regurgitation. Signed by : Beau Wyatt, Electronically Approved : 07/22/2021 14:58:06
[2021-07-22 15:17] VITALS: BP 149/82
[2021-07-22] MEDS: ISOSORBIDE DINITRATE 10 MG TABLET. PO SCH ×2 (17:14→20:42)
[2021-07-22] MEDS ORDERED: DEXTROSE 50% 25 GM / 50ML DISP.SYRIN. IV PRN (17:15)
[2021-07-22] MEDS ORDERED: INSULIN LISPRO 300 UNITS/3 ML VIAL. SQ ONE (17:30)
[2021-07-22] MEDS: INSULIN LISPRO 300 UNITS/3 ML VIAL. SQ SCH (17:36)
[2021-07-22 19:12] VITALS: BP 104/48
[2021-07-22] MEDS: INSULIN GLARGINE SYRINGE. SQ SCH (20:43)
[2021-07-22] MEDS ORDERED: ATORVASTATIN CALCIUM 40 MG TABLET. PO SCH (21:00)
[2021-07-22 22:11] VITALS: BP 107/54
[2021-07-23 02:58] VITALS: BP 113/63
[2021-07-23 05:18] LABS: HEMATOCRIT 35.6 % (39.0-53.0); HEMOGLOBIN 12.2 g/dL (13.0-17.5); RED BLOOD COUNT 4.08 x10^6/uL (4.30-5.70); RED CELL DISTRIBUTION WIDTH 13.7 % (11.5-14.5); WHITE BLOOD COUNT 5.6 x10^3/uL (4.0-11.0)
[2021-07-23 07:00] VITALS: BP 124/73
[2021-07-23] MEDS ORDERED: NON FORMULARY ITEM (Dextroamphetamine/Amphetamine (Adderall Xr 30 Mg Capsule) 1 CAP) PO SCH (08:00)
[2021-07-23] MEDS: ISOSORBIDE DINITRATE 10 MG TABLET. PO SCH (08:50)
[2021-07-23] MEDS ORDERED: METOPROLOL SUCC 24HR ER 50 MG TAB.ER.24H. PO SCH (09:00)
[2021-07-23] MEDS: INSULIN GLARGINE SYRINGE. SQ SCH (09:00)
[2021-07-23] MEDS ORDERED: ISOSORBIDE MONONITRATE ER 30 MG TAB.ER.24H PO SCH (09:00)
[2021-07-23] MEDS ORDERED: TAMSULOSIN 0.4 MG CAP.ER.24H. PO SCH (09:00)
[2021-07-23] MEDS ORDERED: FENOFIBRATE,MICRONIZED 134 MG CAPSULE PO SCH (09:00)
[2021-07-23] MEDS ORDERED: METOPROLOL SUCC 24HR ER 100 MG TAB.ER.24H. PO SCH (09:00)
[2021-07-23] MEDS ORDERED: ASPIRIN CHEWABLE 81 MG TABLET. PO SCH (09:00)
[2021-07-23] MEDS ORDERED: LOSARTAN POTASSIUM 50 MG TABLET. PO SCH (09:00)
[2021-07-23] MEDS ORDERED: FINASTERIDE 5 MG TABLET. PO SCH (09:00)
[2021-07-23] MEDS ORDERED: CLOPIDOGREL BISULFATE 75 MG TABLET PO SCH ×2 (09:00)
[2021-07-23] MEDS ORDERED: FLUoxetine HCL 20 MG CAPSULE PO SCH (09:00)
[2021-07-23 11:00] VITALS: BP 120/64
[2021-07-23] MEDS ORDERED: ISOS10TA2 PO (11:23)
[2021-07-23] MEDS ORDERED: NITR0.4T24 SL (11:23)
[2021-07-23] MEDS ORDERED: METO-247 PO (11:23)
--- NOTE | 2021-07-23 11:29 | PDOC ---
[employer] PROGRESS NOTE Date of Service DOS: DATE: 07/23/21 TIME: 11:28 Chief Complaint Chief Complaint Chest pain with status post cardiac cath yesterday (small vessel disease we are going with medical management) Coronary artery bypass surgery, CAD, coronary stents, hypertension, hyperlipidemia, PIOTR, neuropathy, osteoarthritis, anxiety, BPH and diabetes. History of Present Illness History of Present Illness 07/23/2012 Patient seen exam He is at his baseline Cardiac cath results showed small vessel disease We will discharge this afternoon with medical manage Discussed with case management Discussed with RN Vitals/I&O Vitals/I&O: Vital Signs Date Time Temp Pulse Resp B/P (MAP) Pulse Ox O2 Delivery O2 Flow Rate FiO2 07/23/21 08:51 67 124/73 07/23/21 08:00 Room Air 2.0 07/23/21 07:00 98.8 16 95 98.8 I & O 07/22/21 07/22/21 07/23/21 15:00 23:00 07:00 Intake Total 0 ml 240 ml 300 ml Balance 0 ml 240 ml 300 ml Physical Exam General: Alert, Oriented X3, Cooperative, No acute distress Heart: Regular rate (SR), Normal S1, Normal S2, No murmurs Abdomen: Soft, No tenderness Extremities: No cyanosis, No edema Skin: No breakdown, No significant lesion Labs Labs: Laboratory Tests Test 07/22/21 12:06 07/22/21 12:48 07/22/21 16:56 07/22/21 20:59 Glucose (Fingerstick) 191 mg/dL (70-99) 418 mg/dL (70-99) 306 mg/dL (70-99) Heparin Anti-Xa Act, Unfractionated < 0.10 IU/mL (0.30-0.70) Test 07/23/21 04:05 07/23/21 07:52 White Blood Count 5.6 x10^3/uL (4.0-11.0) Red Blood Count 4.08 x10^6/uL (4.30-5.70) Hemoglobin 12.2 g/dL (13.0-17.5) Hematocrit 35.6 % (39.0-53.0) Mean Corpuscular Volume 87 fL (79-100) Mean Corpuscular Hemoglobin 30 pg (25-35) Mean Corpuscular Hemoglobin Concent 34 g/dL (31-37) Red Cell Distribution Width 13.7 % (11.5-14.5) Platelet Count 193 x10^3/uL (140-400) Glucose (Fingerstick) 257 mg/dL (70-99) Assessment and Plan Assessmemt and Plan Problems Medical Problems: (1) Chest pain Status: Acute Discharge see dictation Comment Review of Relevant I have reviewed the following items hunter (where applicable) has been applied. Medications: Current Medications Medications (Trade) Dose Ordered Sig/Becca Route PRN Reason Start Time Stop Time Status Last Admin Dose Admin Aspirin (Aspirin Chewable) 81 mg DAILY PO 07/23/21 09:00 07/23/21 08:50 Finasteride (Proscar) 5 mg DAILY PO 07/23/21 09:00 07/23/21 08:50 Fluoxetine HCl (PROzac) 20 mg DAILY PO 07/23/21 09:00 07/23/21 08:50 Losartan Potassium (Cozaar) 50 mg DAILY PO 07/23/21 09:00 07/23/21 08:49 Tamsulosin HCl (Flomax) 0.4 mg DAILY PO 07/23/21 09:00 07/23/21 08:50 Fenofibrate (Lofibra) 134 mg DAILY PO 07/23/21 09:00 07/23/21 08:50 Insulin Glargine (Lantus Syringe) 40 unit BID SQ 07/22/21 21:00 07/22/21 20:43 Atorvastatin Calcium (Lipitor) 40 mg QHS PO 07/22/21 21:00 07/22/21 20:42 Isosorbide Mononitrate (Imdur) 30 mg DAILY PO 07/23/21 09:00 07/23/21 08:51 Clopidogrel Bisulfate (Plavix) 75 mg DAILY PO 07/23/21 09:00 07/23/21 08:50 Isosorbide Dinitrate (Isordil) 30 mg TID PO 07/22/21 14:15 07/22/21 20:42 Metoprolol Succinate (Toprol Xl) 100 mg DAILY PO 07/23/21 09:00 07/23/21 08:49 Metoprolol Succinate (Toprol Xl) 100 mg 1X ONCE PO 07/22/21 14:15 10/26/21 14:35 DC 07/22/21 17:14 Insulin Human Lispro (HumaLOG) 0-9 UNITS TIDWMEALS SQ 07/22/21 17:30 07/22/21 17:36 Insulin Human Lispro (HumaLOG) 10 units 1X ONCE SQ 07/22/21 17:30 07/22/21 17:31 DC 07/22/21 17:27 Justifications for Admission Other Justification RAMSEY OCHOA III DO Jul 23, 2021 11:29
--- NOTE | 2021-07-23 11:50 | PDOC ---
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 07/23/21 1150: CARDIO Progress Notes Date and Time Date of Service 07/23/21 Time of Evaluation 1150 Subjective Subjective: No Chest Pain, No shortness of breath, No Palpitations Vitals Vitals Vital Signs Date Time Temp Pulse Resp B/P (MAP) Pulse Ox O2 Delivery O2 Flow Rate FiO2 07/23/21 08:51 67 124/73 07/23/21 08:00 Room Air 2.0 07/23/21 07:00 98.8 16 95 98.8 Weight Weight [ ] Input and Output Intake and Output Intake and Output 07/23/21 07:00 Intake Total 540 ml Balance 540 ml Intake Oral 540 ml Laboratory Labs Laboratory Tests Test 07/22/21 12:06 07/22/21 12:48 07/22/21 16:56 07/22/21 20:59 Glucose (Fingerstick) 191 mg/dL (70-99) 418 mg/dL (70-99) 306 mg/dL (70-99) Heparin Anti-Xa Act, Unfractionated < 0.10 IU/mL (0.30-0.70) Test 07/23/21 04:05 07/23/21 07:52 White Blood Count 5.6 x10^3/uL (4.0-11.0) Red Blood Count 4.08 x10^6/uL (4.30-5.70) Hemoglobin 12.2 g/dL (13.0-17.5) Hematocrit 35.6 % (39.0-53.0) Mean Corpuscular Volume 87 fL (79-100) Mean Corpuscular Hemoglobin 30 pg (25-35) Mean Corpuscular Hemoglobin Concent 34 g/dL (31-37) Red Cell Distribution Width 13.7 % (11.5-14.5) Platelet Count 193 x10^3/uL (140-400) Glucose (Fingerstick) 257 mg/dL (70-99) Physical Exam HEENT: Neck Supple W Full Motion Chest: Symmetric LUNGS: Clear to Auscultation Heart: RRR Abdomen: Soft N/T Extremities: No Edema Neurology: alert, oriented, follow commands Assessment Assessment 1. NSTEMI 2. CAD; s/p previous CABG and subsequent PCI/stents. LHC as noted below * Conclusion 1. Severe [place] vessel coronary artery disease s/p coronary artery bypass surgery as described above with patent RAMOS to LAD, patent stents in the sequ ential saphenous vein graft to the first and second obtuse marginal branches. The saphenous vein graft to the right coronary artery showed chronic total occlusion. The previously placed stent in the proximal to mid segment of the left anterior descending artery is patent. No lesions needing intervention were noted. 3. Hypertension; controlled 4. Hyperlipidemia; statin 5. Diabetes, II 6. Hx of AAA: outpt monitoring Recommendations Secondary prevention measures including DAPT with ASA/Plavix and high-dose statin therapy Convert isosorbide to short-acting TID Follow up with primary loss prevention manager, Dr. Gamez upon discharge Justicifation of Admission Dx: Justifications for Admission: Justification of Admission Dx: Yes MT: Acute NSTEMI BRINDA MAYNARD MD 07/23/212045: CARDIO Progress Notes Assessment Assessment Patient seen and examined. Agree with ELA TEACHER's assessment and plan as stated above. Cardiac cath yesterday did not show any lesions needing intervention Continue anti anginal therapy and follow up with primary loss prevention manager at SHERIN MOHR APRN Jul 23, 2021 11:50 BRINDA MAYNARD MD Jul 23, 2021 20:46
[2021-07-23] MEDS: INSULIN LISPRO 300 UNITS/3 ML VIAL. SQ SCH (11:56)
--- NOTE | 2021-07-23 12:59 | NUR ---
SS following up with discharge planning. SS reviewed pt chart and discussed with pt RN. Pt is currently on room air. COVID19 negative. Pt had heart cath on 07/22/2021. No PT/OT needs. Discharge order on the chart for home with self care.
--- NOTE | 2021-07-23 15:00 | NUR ---
DISCHARGED PATIENT TO HOME. DISCHARGE INSTRUCTIONS GIVEN. PIV AND HEART MONITOR REMOVED. ESCORTED PATIENT OFF UNIT INTO A PRIVATE VEHICLE.
--- NOTE | 2021-07-23 18:16 | DS ---
DATE OF DISCHARGE: 07/23/2021 ADMITTING DIAGNOSES: 1. Chest pain with known coronary disease. 2. History of bypass surgery, history of previous stents. 3. Hypertension. 4. Hyperlipidemia. 5. Obstructive sleep apnea. 6. Neuropathy. 7. Osteoarthritis. 8. Anxiety 9. BPH. 10. Diabetes. DISCHARGE DIAGNOSES: Status post cardiac catheterization (he has small vessel disease, no stents could be placed. We are going with medical management). HOSPITAL COURSE: The patient is a pleasant middle-aged male who presented with chest pain. He has known coronary disease. He was admitted. We did serial enzymes and serial EKGs. We consulted Cardiology. His troponin max was 4.69. Dr. Martini taken to the Production [facility] and small vessel disease was noted. We feel like he has chronic angina. We are putting him on medical management. DISPOSITION: Home. ACTIVITY: As tolerated. DIET: Cardiac. MEDICATIONS: Please see the MRAD. We did put him on the following: Isosorbide dinitrate 30 mg t.i.d., metoprolol XL 100 a day, p.r.n. nitro, aspirin 81 a day, Plavix 75 a day, Adderall XR 30 mg a day, fenofibrate 160 a day, finasteride 5 a day, fluoxetine 20 a day, insulin 10 units with meals Humalog, losartan 50 a day, Novolin insulin 40 units b.i.d., Crestor 10 a day, Flomax 0.4 a day. We are going to hold his metformin for a few days and then resume it at 1000 mg daily with breakfast. TOTAL TIME: 34 minutes. RUBI/LOCO/JUDSON SANTIAGO: RUBI/jennifer TID: [id number]
[2021-07-25] MEDS ORDERED: metFORMIN 500 MG TABLET PO SCH (08:00)
== END 2021-07-23 15:00 | disposition home or self-care (01) | DRG 280 ==
LOC: ER 00:03 → 6 SOUTH 00:33
PROVIDERS: ADMIT Internal Medicine; ATTEND Internal Medicine
PROC: 4A023N7 Measurement of Cardiac Sampling and Pressure, Left Heart, Percutaneous Approach (ICD-10-PCS; principal; 2021-07-22)
PROC: B211YZZ Fluoroscopy of Multiple Coronary Arteries using Other Contrast (ICD-10-PCS; 2021-07-22)
PROC: B213YZZ Fluoroscopy of Multiple Coronary Artery Bypass Grafts using Other Contrast (ICD-10-PCS; 2021-07-22)
PROC: B218YZZ Fluoroscopy of Left Internal Mammary Bypass Graft using Other Contrast (ICD-10-PCS; 2021-07-22)
PROC: B310YZZ Fluoroscopy of Thoracic Aorta using Other Contrast (ICD-10-PCS; 2021-07-22)
DX: I21.4 Non-ST elevation (NSTEMI) myocardial infarction (principal); I50.31 Acute diastolic (congestive) heart failure; I25.810 Atherosclerosis of coronary artery bypass graft(s) without angina pectoris; E11.51 Type 2 diabetes mellitus with diabetic peripheral angiopathy without gangrene; R07.89 Other chest pain; E11.40 Type 2 diabetes mellitus with diabetic neuropathy, unspecified; E78.5 Hyperlipidemia, unspecified; F41.9 Anxiety disorder, unspecified; G47.33 Obstructive sleep apnea (adult) (pediatric); M19.90 Unspecified osteoarthritis, unspecified site; N40.0 Benign prostatic hyperplasia without lower urinary tract symptoms; W26.0XXA Contact with knife, initial encounter; Z79.4 Long term (current) use of insulin; Z82.49 Family history of ischemic heart disease and other diseases of the circulatory system; Z95.5 Presence of coronary angioplasty implant and graft; E66.9 Obesity, unspecified; I11.0 Hypertensive heart disease with heart failure; Z95.1 Presence of aortocoronary bypass graft
CPT/HCPCS: 93459; 93567; 99285; G0269; 36415; 71045; 71275; 80053; 80061; 82962; 83735; 83880; 84484; 85025; 85027; 85379; 85520; 85610; 85730; 87426; 90471; 90686; 93005; 93306; 99152; 99153; C1894; J1644; J1815; J2250; J3010; J3490; Q9967; U0003; U0005; G0378